=== PATIENT | male | born 1985 | race Caucasian/White ===

== ENCOUNTER 2017-08-25 08:49 | Emergency (ER) | payer OTHER ==
[2017-08-25] MEDS ORDERED: Lidocaine 1% 20 ML MDV INJECT ONE (08:57)
--- NOTE | 2017-08-25 09:03 | EDM.PDOC ---
ED HPI GENERAL MEDICAL PROBLEM - General Chief Complaint: Upper Extremity Injury/Pain Stated Complaint: SMASHED HIS FINGERS AT WORK Time Seen by Provider: 08/25/17 08:52 - History of Present Illness INITIAL COMMENTS - FREE TEXT/NARRATIVE: HISTORY AND PHYSICAL: History of present illness: The patient is a 32-year-old male who is healthy and up-to-date on his tetanus shot and presents from work after injuring his right digits 3 and 4 in a shearing-like action with some equipment and a pipe. The patient is right-hand dominant. The patient states he was holding a pipe and the mechanism was moving back and forth and it caused his 2 digits to get trapped and to have a crushing shearing-like action to them. The other digits are intact and nontender and the remainder of the hand is without injury. Prior to these events was in his usual state of good health. Review of systems: As per history of present illness and below otherwise all systems reviewed and negative. Past medical history: As per history of present illness and as reviewed below otherwise noncontributory. Surgical history: As per history of present illness and as reviewed below otherwise noncontributory. Social history: No reported history of drug or alcohol abuse. Family history: As per history of present illness and as reviewed below otherwise noncontributory. Physical exam: Gen.: Well-developed well-nourished man who is nontoxic and speaking clearly and easily in the ED. Vital signs have been reviewed by me HEENT: Atraumatic, normocephalic, negative for conjunctival pallor or scleral icterus, mucous membranes moist, throat clear, neck supple, nontender, trachea midline. Lungs: Clear to auscultation, breath sounds equal bilaterally, chest nontender. Heart: S1S2, regular rate and rhythm no overt murmurs Abdomen: Soft, nondistended, nontender. NABS Pelvis: Deferred Genitourinary: Deferred. Rectal: Deferred. Extremities: Atraumatic with full range of motion of all extremities with the exception of the distal aspects of digits 3 and 4 right hand. In this location there is near complete disruption of the nail from the nail base and bed on both digits with associated contused tissue/lacerations at areas. The proximal aspect of the fingers have no defects or deformities or tenderness. The soft tissue jessica are swollen but on the palmar surface there is no evidence of any injuries. After the area is blocked and irrigated I will reevaluate exam the legs are, negative for cords or calf pain. Neurovascular unremarkable. Neuro: Awake, alert, oriented. Cranial nerves II through XII unremarkable. Cerebellum unremarkable. Motor and sensory unremarkable throughout. Exam nonfocal. Diagnostics: X-ray of right digits 3 and 4 Therapeutics: Digital block with lidocaine without epinephrine. Copious irrigation and cleansing. Keflex Toradol Procedure note: After a digital block was explained to the patient is placed on both fingers using a 27-gauge needle and lidocaine without epinephrine for a total amount of 1.75 mL per finger. After nursing has scrubbed and irrigated the area I reevaluated the injuries for a better exam. There is a large amount of soft tissue which is attached to the nail and is disrupted. But there is no bone exposed or appreciated. There are no foreign bodies appreciated and the nails were tacked down to their proper place in the nail bed on each finger using a total number of#3 sutures of 3-0 nylon in the third and #3 sutures of 3- 0 nylon in the fourth digits in a simple interrupted fashion. A single single interrupted suture of 4-0 nylon was placed laterally on the soft tissue of the third digit. The soft tissue in general is very macerated and contused. There were no complications and a nonstick dressing was applied. Patient tolerated procedure well. Patient tells nursing and me that he is from [facility] and that he will likely follow up there. I did encourage him to have at least once follow up with our hand specialist as it'll be more expedited but it is his choice. Procedure performed by Kari Saleem [employer] UP OPERATOR Impression: Crush injury of right fingers 3 and 4 with the nail bed disruption and open tuft fracture of digit 4 Definitive disposition and diagnosis as appropriate pending reevaluation and review of above. rt. 3rd & 4th digit Pain Score (Numeric/FACES): 5 - Related Data Allergies Allergy/AdvReac Type Severity Reaction Status Date / Time No Known Allergies Allergy Verified 08/25/17 08:55 Home Meds: Home Meds . [No Known Home Meds] 08/25/17 [History] Review of Systems - Review of Systems Review Of Systems: ROS reveals no pertinent complaints other than HPI. ED EXAM, GENERAL - Physical Exam Exam: See Below (See dictation) Course - Vital Signs Last Recorded V/S: Last Vital Signs Temp 36.9 C 08/25/17 08:56 Pulse 78 08/25/17 08:56 Resp 18 08/25/17 08:56 BP 146/51 H 08/25/17 08:56 Pulse Ox 97 08/25/17 08:56 - Orders/Labs/Meds Orders: Active Orders 24 hr Category Date Time Status Fingers Multiple Rt [CR] Stat Exams 08/25/17 08:57 Taken Bacitracin [Bacitracin Oint 1 GM] Med 08/25/17 10:44 Once 3 dose TOP ONETIME ONE Medication Orders Bacitracin (Bacitracin Oint 1 Gm) 3 dose TOP ONETIME ONE Stop: 08/25/17 10:45 Meds: Medications Generic Name Dose Route Start Last Admin Trade Name Freq PRN Reason Stop Dose Admin Bacitracin 3 dose 08/25/17 10:44 Bacitracin Oint 1 Gm TOP 08/25/17 10:45 ONETIME ONE Discontinued Medications Generic Name Dose Route Start Last Admin Trade Name Freq PRN Reason Stop Dose Admin Cephalexin 500 mg 08/25/17 09:09 08/25/17 09:18 Keflex PO 08/25/17 09:10 500 mg ONETIME ONE Administration Ketorolac Tromethamine 60 mg 08/25/17 09:10 08/25/17 09:18 Toradol IM 08/25/17 09:11 60 mg ONETIME ONE Administration Lidocaine HCl 20 ml 08/25/17 08:57 08/25/17 09:03 Xylocaine 1% INJECT 08/25/17 08:58 20 ml ONETIME ONE Administration Departure - Departure Time of Disposition: 10:49 Disposition: Home, Self-Care 01 Condition: Good Clinical Impression: Open fracture of tuft of distal phalanx of finger Crushing injury of distal finger Qualifiers: Encounter type: initial encounter Qualified Code(s): S67.10XA - Crushing injury of unspecified finger(s), initial encounter - Discharge Information Forms: ED Department Discharge Additional Instructions: The following information is given to patients seen in the emergency department who are being discharged to home. This information is to outline your options for follow-up care. We provide all patients seen in our emergency department with a follow-up referral. The need for follow-up, as well as the timing and circumstances, are variable depending upon the specifics of your emergency department visit. If you don't have a primary care physician on staff, we will provide you with a referral. We always advise you to contact your personal physician following an emergency department visit to inform them of the circumstance of the visit and for follow-up with them and/or the need for any referrals to a consulting specialist. The emergency department will also refer you to a specialist when appropriate. This referral assures that you have the opportunity for followup care with a specialist. All of these measure are taken in an effort to provide you with optimal care, which includes your followup. Under all circumstances we always encourage you to contact your private physician who remains a resource for coordinating your care. When calling for followup care, please make the office aware that this follow-up is from your recent emergency room visit. If for any reason you are refused follow-up, please contact the [facility] emergency department at and ask to speak to the emergency department charge nurse. [facility]-Pl[facility] Hand Surgery Professional [address] [address] Please contact our hand specialist Dr. Crowder on Sunday to be followed up in their clinic for further care and evaluation. Please take antibiotics as directed until they're finished. Keep hand elevated. Keep dressing that is placed today on until you are seen on Sunday or Sunday for follow-up. Use over- the-counter Tylenol or ibuprofen for pain and stronger pain medications as needed. Return to ER as needed and as discussed. If you choose to follow-up at home in [place] please connect with a hand specialist early next week as follow -up if needed within the next few days. - My Orders Last 24 Hours: My Active Orders 08/25/17 08:57 Fingers Multiple Rt [CR] Stat - Assessment/Plan Last 24 Hours: My Active Orders 08/25/17 08:57 Fingers Multiple Rt [CR] Stat
[2017-08-25] MEDS ORDERED: Cephalexin 500 MG Cap PO ONE (09:09)
[2017-08-25] MEDS ORDERED: Ketorolac 60 MG/2 ML SDV IM ONE (09:10)
[2017-08-25] MEDS ORDERED: Bacitracin Oint 1 GM U/D Packet TOP ONE (10:44)
[2017-08-25 11:20] VITALS: BP 132/81
--- NOTE | 2017-08-27 10:14 | CR ---
EXAM DATE: 08/25/17 PATIENT'S AGE: 32 Patient: CHARLOTTE VELEZ Facility: [place], [place] Site . Site : 1985 Study: XRay Extremity Right 3 and 4 digits [id number]/7/2017 9:23:46 AM Ordering Physician: Klaudia Hunter Final Report: INDICATION: TRAUMA- CRUSH INJURY TO 3 AND 4 DIGITS ON RIGHT HAND TECHNIQUE: Three views of the right fingers are submitted. COMPARISON: None. FINDINGS: There is a fracture involving the distal tuft of the right ring finger, approximately 3 mm from the tip. The distal fragment is displaced slightly radially and in a palmar direction. Soft tissue injury involving the fingernails of the long and ring finger with some associated radiopaque density on or in the region of the nails. Vague 2 mm density in the soft tissues distal to the 3rd distal tuft, probably not a tuft fracture. IMPRESSION: Fracture of the right 4th distal tuft. Soft tissue injury about the right long and ring fingers distally. Dictated by Cliff Lomax MD @ 08/25/2017 9:55:59 AM Dictated by: Cliff Lomax MD @ 08/25/2017 09:56:03 (Electronic Signature) Report Signed by Proxy. LORRAINE
== END 2017-08-25 11:06 | disposition home or self-care (01) ==
LOC: MW.ED 08:49
DX: S67.192A Crushing injury of right middle finger, initial encounter (principal); S67.194A Crushing injury of right ring finger, initial encounter; S62.634B Displaced fracture of distal phalanx of right ring finger, initial encounter for open fracture; W23.1XXA Caught, crushed, jammed, or pinched between stationary objects, initial encounter
CPT/HCPCS: 11760; 73140; 96372; 99283; A9270; J1885